=== PATIENT | male | born 1950 | race Hispanic/Latino ===

== ENCOUNTER 2016-09-05 11:10 | Day surgery (SDC) | payer MEDICARE ==
[~2016-09-05 11:10] MED LIST: IOPIDINE OD ONE; MYDRIACYL OD ONE; NEOFRIN OD ONE
[2016-09-05] MEDS ORDERED: IOPIDINE OD ONE (11:50)
[2016-09-05] MEDS ORDERED: NEOFRIN OS ONE (11:50)
[2016-09-05] MEDS ORDERED: NEOFRIN OD ONE (11:50)
[2016-09-05] MEDS ORDERED: MYDRIACYL OS ONE (11:50)
[2016-09-05] MEDS ORDERED: IOPIDINE OS ONE (11:50)
[2016-09-05] MEDS ORDERED: MYDRIACYL OD ONE (11:50)
[2016-09-05 12:24] VITALS: BP 120/66
== END 2016-09-05 11:11 | disposition home or self-care (01) ==
LOC: OR 11:10
PROVIDERS: ATTEND Specialist
DX: E11.36 Type 2 diabetes mellitus with diabetic cataract (principal); H26.492 Other secondary cataract, left eye
CPT/HCPCS: 82962